=== PATIENT | male | born 1970 | race Caucasian/White ===

== ENCOUNTER 2024-01-15 08:06 | Outpatient (AMB) | payer BC, SELFPAY ==
--- NOTE | 2024-01-15 08:05 | PD.ORTHTELE ---
Med/Allergies Allergies & Medications Allergies No Known Allergies Allergy (Verified 01/09/23 08:23) Subjective Visit Visit for: follow up visit Immunization / Flu Flu Vaccine in the Last 12 Months: Yes Flu Vaccine Exclusion Criteria: Already Received History of Present Illness Chief complaint: FOLLOW UP X RAY RESULTS Taj is a pleasant 52-year-old male who is morbidly obese with left knee pain. I have seen him at the previous office and he has severe osteoarthritis of the left knee. He had bariatric surgery recently and has lost 150 pounds. His weight has been roughly the same as 6 months ago. He reports that he is seeing his bariatric surgeon again as he has plateaued Personal History Occupation: [employer] Hobbies: na Red flag PMH: smoker (NON SMOKER ) Pain Pain level (0-10): 3 Pain duration: COMES AND GOES Pain quality: aching Pain timing: increases with activity and stairs Associated signs & symptoms: stiffness Ambulatory data Ambulatory device: none Review of Systems Review of Systems: All systems negative unless otherwise noted in HPI. Assessment and Plan Problem List (1) Pain in left knee: Status: Acute Plan: Patient is a 52-year-old male with severe left knee osteoarthritis. He has tried conservative treatment. WHe has lost weight significantly and we recommend continued weight loss. He would like to get surgery In approximately 6 months and we are waiting for his weight to plateau (2) Unilateral primary osteoarthritis, left knee: Status: Acute
== END 2024-01-15 08:10 | disposition home or self-care (01) ==
LOC: HODSRG 08:06
PROVIDERS: Supervising Provider Orthopaedic Surgery Adult Reconstructive Orthopaedic Surgery; Visit Provider Orthopaedic Surgery Adult Reconstructive Orthopaedic Surgery
DX: M17.12 Unilateral primary osteoarthritis, left knee (principal); E66.01 Morbid (severe) obesity due to excess calories
CPT/HCPCS: 99212; G0463

== ENCOUNTER 2024-07-08 07:58 | Outpatient (AMB) | payer BC, SELFPAY ==
[2024-07-08 08:13] VITALS: BP 122/75; PULSE 61; RESP 18; TEMP 36.4; O2SAT 96; BMI 50.3
--- NOTE | 2024-07-08 08:13 | ORTHONT_ITS ---
Vital signs 07/08/24 08:13 Height 1.83 m Height Method Stated Weight 168.396 kg Weight Measurement Method Standing Scale BMI 50.3 BP 122/75 Blood Pressure Source Automatic Cuff Blood Pressure Location Left Upper Arm Position Sitting Respiration 18 Pulse 61 Pulse Source Monitor Temp 97.5 F Temp Source Temporal Artery Scan Pulse Oximetry (%) 96 Oxygen Delivery Method Room Air Med/Allergies Allergies & Medications Allergies No Known Allergies Allergy (Verified 07/08/24 08:14) Medication Reconciliation Unobtainable 01/09/23 [History Confirmed 07/08/24] Exam Exam Patient is in no acute distress and is cooperative with the examination today. Breathing is nonlabored. In no respiratory distress. Bilateral extremities were evaluated and demonstrates sensation intact to light touch. Palpable pedal pulses are present. No significant edema is present. Bilateral hips were examined. The patient has no pain with log roll of the hips. Internal rotation to 30 degrees and external rotation to 30 degrees is painless. Negative FADIR. The left knee was examined. The left knee is in varus alignment. Range of motion from 0-115 degrees. Knee is stable to varus and valgus as well as AP translation with <5mm. Patient has a negative McMurrays. There is no pain with patellofemoral compression and no crepitus noted. The knee is tender to palpation medially. The right knee was also examined. The right knee is in varus alignment. Range of motion from 0-120 degrees. Knee is stable to varus and valgus as well as AP translation with <5mm. Patient has a negative McMurrays. There is no pain with patellofemoral compression and no crepitus noted. The knee is tender to palpation medially. X-rays demonstrate severe osteoarthritis with complete obliteration of the medial joint space. This is from [facility] Assessment and Plan Problem List (1) Pain in left knee: Status: Acute Plan: Patient is a 52-year-old male with severe left knee osteoarthritis. He has tried conservative treatment. WHe has lost weight significantly and we recommend continued weight loss. He would like to get surgery In approximately 1 year. He has plateaued as far as the weight goes. He would like to try injectables for weight loss (2) Unilateral primary osteoarthritis, left knee: Status: Acute Office Procedures GNS Level of Care Nursing/Assessment Patient Status: Established Patient Nursing Assessment/Reassesment: Medication Reconciliation, Update PMH in EMR and Vital Signs Coordination of Care: Complex Care and Chronic Disease 1-5, Education Complex Pt/Fam, Consent,records obtained, informed consent, Results/Orders obtained and Staff clarify orders Established Patient Charge Established Patient Point Assignment: 95 Established Patient Point Charge: EP Level 3 (80-115) MA Intake Visit Data Collection New Patient or Established: Established Patient (seen at [facility] within 3 years) Reason for Visit:: 6 MONTH FOLLOW UP Seen by Clinical Staff ONLY (RN/MA): No PCP or OBGYN visit in last 3 months: Yes Hx Now: No Do You Feel Safe at Home: Yes Authorities Contacted: N/A Questionairres Past Medical History Past Medical History Have you ever been diagnosed with any of the following: Respiratory Problems Smoking: No Smoking Exposure: No Subjective Visit Visit for: follow up visit and knee Immunization / Flu Flu Vaccine in the Last 12 Months: No Flu Vaccine Exclusion Criteria: No Exclusion Criteria History of Present Illness Chief complaint: Bilateral knee pain Taj is a pleasant 53-year-old male with bilateral knee pain. We discussed different treatment options. He needs to lose more weight even though he has be en trying. His BMI is currently 50. He reports the pain is not bad enough to want an injection Pain Pain level (0-10): 3 Pain duration: ON AND OFF Pain location: inside (medial) and anterior Pain quality: dull and aching Pain timing: night and increases with activity Associated signs & symptoms: none Ambulatory data Ambulatory device: none Treatments Improvement with previous injections: No Improvement with PT: No Improvement with NSAIDS: no Review of Systems Review of Systems: All systems negative unless otherwise noted in HPI.
== END 2024-07-08 08:30 | disposition home or self-care (01) ==
PROVIDERS: Supervising Provider Orthopaedic Surgery Adult Reconstructive Orthopaedic Surgery; Visit Provider Orthopaedic Surgery Adult Reconstructive Orthopaedic Surgery
DX: M25.562 Pain in left knee (principal); M17.12 Unilateral primary osteoarthritis, left knee
CPT/HCPCS: 99213; G0463